=== PATIENT | female | born 1930 | race Caucasian/White ===

== ENCOUNTER → 2019-07-21 | Outpatient (CLI) | payer MEDICARE, BC ==
--- NOTE | 2019-07-21 13:12 | XR ---
EXAMINATION TYPE: XR knee complete RT DATE OF EXAM: 07/21/2019 COMPARISON: NONE HISTORY: 89-year-old female with right knee pain and swelling TECHNIQUE: 3 views FINDINGS: Mild to moderate narrowing of cartilage and joint space within the medial compartment with marginal s purring. Mild degenerative spurring in the patellofemoral compartment. Small knee joint effusion is p resent. Extensor mechanism is intact. No acute fracture, subluxation, or dislocation seen. IMPRESSION: [id number] medial compartmental osteoarthrosis. A weightbearing view could better assess the de gree of cartilage and joint space loss. Small knee joint effusion is nonspecific and may be reactive. No acute osseous abnormality seen.
== END | disposition home or self-care (01) ==
LOC: LABWHC1 11:18
PROVIDERS: ATTEND Family Medicine
DX: M17.11 Unilateral primary osteoarthritis, right knee (principal); R60.0 Localized edema; M25.561 Pain in right knee
CPT/HCPCS: 36415; 85379

== ENCOUNTER → 2019-07-25 | Outpatient (CLI) | payer MEDICARE, BC ==
--- NOTE | 2019-07-25 14:25 | XR ---
EXAMINATION TYPE: XR knee complete bilateral DATE OF EXAM: 07/25/2019 CLINICAL HISTORY: pain TECHNIQUE: Three views of the bilateral knees are obtained. COMPARISON: None. FINDINGS: There is no acute fracture/dislocation. Moderate narrowing noted to involve the bilateral medial tibiofemoral joint spaces and patellofemoral joint spaces. Intercondylar spur formation noted as well. The overlying soft tissue appears unremarkable. IMPRESSION: There is no acute fracture or dislocation.ICD 10 NO FRACTURE, INITIAL EVALUATION
== END | disposition home or self-care (01) ==
LOC: RADXRMAIN 13:06
PROVIDERS: ATTEND Family Medicine
DX: M25.561 Pain in right knee (principal); M25.562 Pain in left knee

== ENCOUNTER 2020-07-09 07:58 | Inpatient (IN) | payer MEDICARE, BC ==
--- NOTE | 2020-07-09 08:05 | ED ---
Chest Pain HPI - General Stated Complaint: chest pain Time Seen by Provider: 07/09/20 07:58 Source: patient, EMS, RN notes reviewed, old records reviewed Mode of arrival: EMS - History of Present Illness Initial Comments: This is an 89-year-old female history of hypertension and recently diagnosed atrial fibrillation who presents by EMS today with complaints of intermittent episodes of chest pain and palpitations that occur throughout this past morning since last night. She states the pain was pressure-like retrosternal and/10 currently it's almost completely gone and she did not require nitroglycerin and route. She did have a variable heart rate was atrial fibrillation. No complaints of fevers chills nausea vomiting sweats or other symptoms MD Complaint: chest pain, other - Related Data Home Medications Medication Instructions Recorded Confirmed Acetaminophen [Tylenol] 500 mg PO Q4-6H PRN 07/09/20 07/09/20 Alendronate Sodium [Fosamax] 70 mg PO SHIELDS 07/09/20 07/09/20 Atorvastatin [Lipitor] 10 mg PO HS 07/09/20 07/09/20 Losartan Potassium 100 mg PO DAILY 07/09/20 07/09/20 Nebivolol [Bystolic] 5 mg PO DAILY 07/09/20 07/09/20 Rivaroxaban [Xarelto] 20 mg PO DAILY 07/09/20 07/09/20 Allergies Allergy/AdvReac Type Severity Reaction Status Date / Time No Known Allergies Allergy Verified 07/09/20 08:23 Review of Systems ROS Statement: Those systems with pertinent positive or pertinent negative responses have been documented in the HPI. ROS Other: All systems not noted in ROS Statement are negative. EKG Findings - EKG Results: EKG: interpreted by JONAH (Atrial fibrillation rate 136 QRS 74 QT since QTC 318/478 nonspecific sept[address] changes some ST abnormality noted) General Exam - General Exam Comments Initial Comments: This is a well-developed well-nourished awake alert oriented 3 female General appearance: alert, anxious Head exam: Present: atraumatic, normocephalic, normal inspection Eye exam: Present: normal appearance, PERRL, EOMI. Absent: scleral icterus, conjunctival injection, periorbital swelling ENT exam: Present: normal exam, mucous membranes moist Neck exam: Present: normal inspection, full ROM, other (No stridor JVD or bruits). Absent: tenderness, meningismus, lymphadenopathy Respiratory exam: Present: normal lung sounds bilaterally. Absent: respiratory distress, wheezes, rales, rhonchi, stridor Cardiovascular Exam: Present: tachycardia, irregular rhythm. Absent: systolic murmur, diastolic murmur, rubs, gallop, clicks GI/Abdominal exam: Present: soft, normal bowel sounds. Absent: distended, tenderness, guarding, rebound, rigid Extremities exam: Present: normal inspection, full ROM, normal capillary refill. Absent: tenderness, pedal edema, joint swelling, calf tenderness Back exam: Present: normal inspection Neurological exam: Present: alert, oriented X3, CN II-XII intact Psychiatric exam: Present: normal affect, normal mood Skin exam: Present: warm, dry, intact, normal color. Absent: rash Course Vital Signs 07/09/20 07/09/20 08:02 09:02 Temperature 98.1 F Pulse Rate 137 H 100 Respiratory 18 18 Rate Blood Pressure 126/89 117/68 O2 Sat by Pulse 95 92 L Oximetry - Reevaluation(s) Reevaluation #1: 07/09/20 08:40 EKG obtained for the patient's primary care office dated 06/27/20 shows atrial fibrillation with similar configuration's. The rate was 135 at that time. Reevaluation #2: 07/09/20 10:01 The patient's heart rate has improved though it is still a bubble 100 no more chest pain reported this time. Chest Pain MDM - MDM Imaging reviewed increased pulmonary vascular markings. I did discuss the findings with the patient family as well as with Dr. Encarnacion Critical Care Time Critical Care Time: Yes Total Critical Care Time: 39 Critical Care Time: Critical care time includes initial presentation with history physical labs x- rays multiple reevaluation patient response to therapy discuss with the patient family and several occasions discuss with the admitting physician review of old charting admission orders documentation the above Disposition Clinical Impression: Rapid atrial fibrillation, Chest pain, Unstable angina pectoris Disposition: ADMITTED IP TO THIS HOSP Condition: Fair Referrals: Shane Post DO [Primary Care Provider] - 1-2 days
[2020-07-09] MEDS ORDERED: DILTIAZEM DRIP BOLUS FROM BAG 1 MG SOLN IV ONE (08:23)
[2020-07-09] MEDS ORDERED: NITROGLYCERIN OINT 1 INCH/GM PACKET TOPICAL STA (08:24)
[2020-07-09] MEDS ORDERED: DILTIAZEM 125 MG in SODIUM CHLORIDE 0.9% 100 ML IV SCH (08:30)
[2020-07-09 08:34] LABS: Basophils % (A) 0 %; Eosinophils # (A) 0.1 k/uL (0-0.7); Eosinophils % (A) 2 %; HCT 39.2 % (34.0-46.0); HGB 12.6 gm/dL (11.4-16.0); Lymphocytes # (A) 2.1 k/uL (1.0-4.8); Lymphocytes % (A) 33 %; MCH 30.1 pg (25.0-35.0); MCHC 32.2 g/dL (31.0-37.0); MCV 93.6 fL (80.0-100.0); Mean Platelet Volume 14.9; Monocytes # (A) 0.6 k/uL (0-1.0); Monocytes % (A) 9 %; Neutrophils # (A) 3.3 k/uL (1.3-7.7); Neutrophils % (A) 52 %; RBC 4.19 m/uL (3.80-5.40); RDW 13.5 % (11.5-15.5); WBC 6.3 k/uL (3.8-10.6)
--- NOTE | 2020-07-09 08:38 | XR ---
EXAMINATION TYPE: XR chest 2V DATE OF EXAM: 07/09/2020 COMPARISON: NONE HISTORY: Chest pain TECHNIQUE: Frontal and lateral views of the chest are obtained. FINDINGS: Heart size is within upper limits of normal. Atherosclerotic aorta. Multiple overlying mary ds. There are diffuse coarse interstitial markings throughout both lungs. There is hyperaeration of l ungs and flattening of the diaphragms suggestive of COPD. Coarse interstitial markings may be chronic or there may be superimposed atypical infection or edema. No prior comparison is available. Minimal atelectasis or scarring at the left lung base. No pleural effusion or pneumothorax. Osteopenia and de generative changes of the thoracic spine. IMPRESSION: 1. Diffuse bilateral coarse interstitial markings throughout the lungs. In a patient with COPD this m ost likely represents chronic scarring although superimposed infection or edema are not excluded. No prior comparison is available.
[2020-07-09 08:53] LABS: Albumin 4.4 g/dL (3.5-5.0); Calcium 9.3 mg/dL (8.4-10.2); Total Bilirubin 0.7 mg/dL (0.2-1.3); Total Protein 7.3 g/dL (6.3-8.2)
[2020-07-09 09:06] LABS: INR 1.1 (<1.2); Prothrombin Time 11.6 sec (9.0-12.0)
[2020-07-09 09:11] LABS: Platelet Count 107 k/uL (150-450)
[2020-07-09 09:12] LABS: Large Platelets Present
[2020-07-09 09:14] LABS: Magnesium 2.1 mg/dL (1.6-2.3); Potassium 4.6 mmol/L (3.5-5.1)
[2020-07-09] MEDS ORDERED: NITROGLYCERIN SL TABS 0.4 MG TAB SUBLINGUAL PRN (10:04)
[2020-07-09] MEDS: ACETAMINOPHEN TAB 500 MG TAB PO PRN ×2 (11:16→21:27)
[2020-07-09] MEDS ORDERED: NITROGLYCERIN OINT 1 INCH/GM PACKET TOPICAL SCH (12:00)
[2020-07-09] MEDS ORDERED: METOPROLOL TARTRATE 25 MG TAB PO SCH (12:30)
--- NOTE | 2020-07-09 13:41 | P.HPIM ---
History of Present Illness H&P Date: 07/09/20 HISTORY OF PRESENT ILLNESS This is an 89-year-old female patient of Dr. Post with past medical history of hypertension, hyperlipidemia, left-sided breast cancer status post surgical intervention in 2010. About one week ago, patient was diagnosed with atrial fibrillation and Dr. Post's office. She was started on bi-systolic and Xarelto. 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 She denies any history of heart attacks, no stress test in the past. Patient was brought into the hospital by EMS with complaints of chest pain and palpitations starting yesterday. The c hest pain was pressure-like retrosternal area type pain. No fever or chills. No nausea or vomiting. She was found to be afebrile, heart rate initially 137, blood pressure 126/89, pulse ox 95% on room air. EKG atrial fibrillation at 136 bpm. WBC 6.3, hemoglobin 12.6, platelet count 107. INR 1.1. Sodium 143, potassium 4.6, chloride 110, CO2 26, BUN 20 creatinine 1.16. Blood sugar 122. Troponins negative on 3 draws. Coronavirus PCR not detected. Liver function tests were normal. Chest x-ray reveals diffuse bilateral coarse interstitial markings throughout the lungs. This most likely represents chronic scarring although superimposed infection or edema not excluded. Patient was given Cardizem bolus of 10 mg followed by a drip at 5 mg per hour, resumed on bi- systolic and Xarelto, cardiology consult requested, echocardiogram ordered. Nitroglycerin paste discontinued due to hypotension. REVIEW OF SYSTEMS Constitutional: No fever, no chills, no night sweats. No weight change. Reports weakness, reports fatigue no lethargy. No daytime sleepiness. EENT: No headache. No blurred vision or double vision, no loss of vision. No loss of Hearing, no ringing in the ears, no dizziness. No nasal drainage or congestion. No epistaxis. No sore throat. Lungs: No shortness of breath, cough, no sputum production. No wheezing. Cardiovascular: Reports chest pain, no lower extremity edema. No palpitations. Reports paroxysmal nocturnal dyspnea. No orthopnea. No lightheadedness or dizziness. No syncopal episodes. Abdominal: No abdominal pain. No nausea, vomiting. No diarrhea. No constipation. No bloody or tarry stools.. No loss of appetite. Genitourinary: No dysuria, increased frequency, urgency. No urinary retention. Musculoskeletal: No myalgias. No muscle weakness, no gait dysfunction, no frequent falls. No back pain. No neck pain. Integumentary: No wounds, no lesions. No rash or pruritus. No unusual bruising. No change in hair or nails. Neurologic: No aphasia. No facial droop. No change in mentation. No head injury. No headache. No paralysis. No paresthesia. Psychiatric: No depression. No anxiety. No mood swings. Endocrine: No abnormal blood sugars. No weight change. No excessive sweating or thirst. No cold intolerance. SOCIAL HISTORY Patient is a lifelong nonsmoker, no alcohol abuse. She drinks occasional wine. She lives at home with her and daughter. FAMILY HISTORY Mother from CVA. Father from unknown cause. Patient has 3 sisters one is alive at age 96 after having a stroke at age 94. One sister has passed due to brain cancer and one has history of coronary artery disease status post stent. A shunt has total of 4 brothers and 3 past. One from diabetes, one from stroke, one from cancer unknown type. Patient has 2 daughters and one has history of carcinoid tumor removal. One son has history of diabetes. PHYSICAL EXAMINATION Gen: This is an 89-year-old female. Patient is resting on the ER stretcher. Patient's and daughters are at bedside. HEENT: Head is atraumatic, normocephalic. Pupils equal, round. Sclerae is anicteric. NECK: Supple. No JVD. No lymphadenopathy. No thyromegaly. LUNGS: Clear to auscultation. No wheezes or rhonchi. No intercostal retractions. HEART: Irregular rate and rhythm. No murmur. ABDOMEN: Soft. Bowel sounds are present. No masses. No tenderness. EXTREMITIES: No pedal edema. No calf tenderness. NEUROLOGICAL: Patient is awake, alert and oriented x3. Cranial nerves 2 through 12 are grossly intact. ASSESSMENT AND PLAN 1. A. fib with RVR, paroxysmal atrial fibrillation. Echocardiogram, cardiology consult, continue bi-systolic and Xarelto, Cardizem drip at 5 mg per hour. 2. Chest pain with negative troponins. Repeat troponin, echocardiogram. 3. Hypertension. Continue losartan 100 mg daily, bi-systolic. 4. Hyperlipidemia. Continue Lipitor 10 mg at bedtime. 5. History of left-sided breast cancer status post surgical intervention in 2010. 6. GI prophylaxis. Protonix. 7. DVT prophylaxis. Xarelto. Patient will be admitted to the hospital for a minimum of 2 night stay. DISCHARGE PLAN Home Impression and plan of care have been directed as dictated by the signing ph ysician. Triny Biggs nurse practitioner acting as scribe for signing physicia Past Medical History Additional Past Medical History / Comment(s): breast cancer on left side History of Any Multi-Drug Resistant Organisms: None Reported Past Surgical History: Breast Surgery Additional Past Surgical History / Comment(s): breast surgery 2010 Past Psychological History: No Psychological Hx Reported Smoking Status: Never smoker Past Alcohol Use History: Occasional Past Drug Use History: None Reported Medications and Allergies Home Medications Medication Instructions Recorded Confirmed Type Acetaminophen [Tylenol] 500 mg PO Q4-6H PRN 07/09/20 07/09/20 History Alendronate Sodium [Fosamax] 70 mg PO SHIELDS 07/09/20 07/09/20 History Atorvastatin [Lipitor] 10 mg PO HS 07/09/20 07/09/20 History Losartan Potassium 100 mg PO DAILY 07/09/20 07/09/20 History Nebivolol [Bystolic] 5 mg PO DAILY 07/09/20 07/09/20 History Rivaroxaban [Xarelto] 20 mg PO DAILY 07/09/20 07/09/20 History Allergies Allergy/AdvReac Type Severity Reaction Status Date / Time No Known Allergies Allergy Verified 07/09/20 08:23 Physical Exam Vitals: Vital Signs Temp Pulse Resp BP Pulse Ox 07/09/20 11:06 94 18 106/68 92 L 07/09/20 09:02 100 18 117/68 92 L 07/09/20 08:02 98.1 F 137 H 18 126/89 95 Intake and Output 07/08/20 07/09/20 07/09/20 22:59 06:59 14:59 Other: Weight 73.936 kg Results CBC & Chem 7: 07/09/20 08:16 07/09/20 08:16 Labs: Abnormal Lab Results - Last 24 Hours (Table) 07/09/20 07/09/20 Range/Units 08:16 08:16 Plt Count 107 L (150-450) k/uL Chloride 110 H (98-107) mmol/L BUN 20 H (7-17) mg/dL Creatinine 1.16 H (0.52-1.04) mg/dL Glucose 122 H (74-99) mg/dL
--- NOTE | 2020-07-09 13:49 | P.CRDCN ---
History of Present Illness History of present illness: HISTORY OF PRESENTING ILLNESS This is a pleasant 89-year-old female past medical history significant for hypertension, dyslipidemia and breast cancer status post mastectomy. She s tates one week ago she was diagnosed with A. fib by her PCP and started on Xarelto. 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 She presented to the hospital this morning with symptoms of chest heaviness and palpitations. On arrival she was found to be in A. fib with heart rate of 136. She was initiated on IV Cardizem. She is seen and examined resting comfortably in bed with to her daughters at the bedside. At this time her heart rate is much better controlled in the 80s, she continues to be in A. fib. She has no further symptoms of chest heaviness. She states over the previous 2 weeks she has noticed some exertional shortness of breath when she is climbing the stairs. No shortness of breath at rest. Chest x-ray reveals bilateral coarse interstitial markings. Laboratory data reviewed, platelets 107, sodium 143, potassium 4.6, creatinine 1.16, magnesium 0.7, troponin negative 2, proBNP 1510. Current daily cardiac medications include Xarelto 20 mg daily, by systolic 5 mg daily, losartan 100 mg daily and atorvastatin 10 mg daily. REVIEW OF SYSTEMS At the time of my exam: CONSTITUTIONAL: Denies fever or chills. CARDIOVASCULAR: Denies chest pain, shortness of breath, orthopnea, PND or palpitations. RESPIRATORY: Denies cough. GASTROINTESTINAL: Denies abdominal pain, diarrhea, constipation, nausea or vomiting. MUSCULOSKELETAL: Denies myalgias. NEUROLOGIC: Denies numbness, tingling, headacbe or weakness. ENDOCRINE: Denies fatigue, weight change, polydipsia or polyurina. GENITOURINARY: Denies burning, hematuria or urgency with micturation. HEMATOLOGIC: Denies history of anemia or bleeding. PHYSICAL EXAMINATION Blood pressure 106/68 heart rate 94 afebrile and maintaining oxygen saturation on room air. CONSTITUTIONAL: No apparent distress. HEENT: Head is normocephalic. Pupils are equal, round. Sclerae anicteric. Mucous membranes of the mouth are moist. No JVD. No carotid bruit. CHEST EXAMINATION: Lungs are clear to auscultation. No chest wall tenderness is noted on palpation or with deep breathing. HEART EXAMINATION: Irregular rate and rhythm. S1, S2 heard. No murmurs, gallops or rub. ABDOMEN: Soft, nontender. Positive bowel sounds. EXTREMITIES: 2+ peripheral pulses, no lower extremity edema and no calf tenderness. NEUROLOGIC EXAMINATION: Patient is awake, alert and oriented x3. ASSESSMENT Paroxysmal atrial fibrillation with rapid ventricular response Chest pain Hypertension Dyslipidemia PLAN Chest pain possibly related to A. fib with RVR. An acute coronary event has been ruled out. Obtain 2-D echocardiogram and Doppler study to assess cardiac structure and function. Change by bistolic to Toprol 25 mg daily. Discontinue Cardizem infusion. Decrease losartan to 50 mg daily. Further recommendations to follow based upon clinical course. Thank you kindly for this consultation. Nurse Practitioner note has been reviewed, I agree with a documented findings and plan of care. Patient was seen and examined. Past Medical History Additional Past Medical History / Comment(s): breast cancer on left side History of Any Multi-Drug Resistant Organisms: None Reported Past Surgical History: Breast Surgery Additional Past Surgical History / Comment(s): breast surgery 2010 Past Psychological History: No Psychological Hx Reported Smoking Status: Never smoker Past Alcohol Use History: Occasional Past Drug Use History: None Reported Medications and Allergies Home Medications Medication Instructions Recorded Confirmed Type Acetaminophen [Tylenol] 500 mg PO Q4-6H PRN 07/09/20 07/09/20 History Alendronate Sodium [Fosamax] 70 mg PO SHIELDS 07/09/20 07/09/20 History Atorvastatin [Lipitor] 10 mg PO HS 07/09/20 07/09/20 History Losartan Potassium 100 mg PO DAILY 07/09/20 07/09/20 History Nebivolol [Bystolic] 5 mg PO DAILY 07/09/20 07/09/20 History Rivaroxaban [Xarelto] 20 mg PO DAILY 07/09/20 07/09/20 History Allergies Allergy/AdvReac Type Severity Reaction Status Date / Time No Known Allergies Allergy Verified 07/09/20 08:23 Physical Exam Vitals: Vital Signs Temp Pulse Resp BP Pulse Ox 07/09/20 11:06 94 18 106/68 92 L 07/09/20 09:02 100 18 117/68 92 L 07/09/20 08:02 98.1 F 137 H 18 126/89 95 Intake and Output 07/08/20 07/09/20 07/09/20 22:59 06:59 14:59 Other: Weight 73.936 kg Results 07/09/20 08:16 07/09/20 08:16 Cardiac Enzymes 07/09/20 07/09/20 07/09/20 Range/Units 08:16 08:16 10:37 AST 28 (14-36) U/L Troponin I <0.012 <0.012 (0.000-0.034) ng/mL Coagulation 07/09/20 Range/Units 08:16 PT 11.6 (9.0-12.0) sec APTT 26.0 (22.0-30.0) sec CBC 07/09/20 Range/Units 08:16 WBC 6.3 (3.8-10.6) k/uL RBC 4.19 (3.80-5.40) m/uL Hgb 12.6 (11.4-16.0) gm/dL Hct 39.2 (34.0-46.0) % Plt Count 107 L (150-450) k/uL Comprehensive Metabolic Panel 07/09/20 Range/Units 08:16 Sodium 143 (137-145) mmol/L Potassium 4.6 (3.5-5.1) mmol/L Chloride 110 H (98-107) mmol/L Carbon Dioxide 26 (22-30) mmol/L BUN 20 H (7-17) mg/dL Creatinine 1.16 H (0.52-1.04) mg/dL Glucose 122 H (74-99) mg/dL Calcium 9.3 (8.4-10.2) mg/dL AST 28 (14-36) U/L ALT 16 (4-34) U/L Alkaline Phosphatase 40 (38-126) U/L Total Protein 7.3 (6.3-8.2) g/dL Albumin 4.4 (3.5-5.0) g/dL Current Medications Generic Name Dose Route Start Last Admin Trade Name Freq PRN Reason Stop Dose Admin Acetaminophen 500 mg 07/09/20 10:05 07/09/20 11:16 Acetaminophen Tab 500 Mg Tab PO 500 mg Q4H PRN Administration Pain Aspirin 325 mg 07/10/20 09:00 Aspirin 325 Mg Tab PO DAILY MADELAINE Atorvastatin Calcium 10 mg 07/09/20 21:00 Atorvastatin 10 Mg Tab PO HS [facility] Diltiazem HCl 125 mg/ Sodium 125 mls @ 5 mls/hr 06/01/21 08:30 07/09/20 08:40 Chloride IV 5 mg/hr .Q24H MADELAINE 5 mls/hr Administration 5 MG/HR Losartan Potassium 100 mg 07/10/20 09:00 Losartan 50 Mg Tab PO DAILY MADELAINE Nebivolol 5 mg 07/10/20 09:00 Nebivolol 5 Mg Tab PO DAILY MADELAINE Nitroglycerin 0.4 mg 07/09/20 10:04 Nitroglycerin Sl Tabs 0.4 Mg Tab SUBLINGUAL Q5M PRN Chest Pain Rivaroxaban 20 mg 07/10/20 09:00 Rivaroxaban 20 Mg Tab PO DAILY MADELAINE Intake and Output 07/08/20 07/09/20 07/09/20 22:59 06:59 14:59 Other: Weight 73.936 kg Patient Weight 07/10/20 06:59 Weight 73.936 kg 07/09/20 08:16 07/09/20 08:16
[2020-07-09] MEDS: METOPROLOL SUCCINATE (ER) 25 MG TAB.ER.24H PO SCH (14:39)
--- NOTE | 2020-07-09 17:22 | ECHOF ---
Referral Reason:LVF MEASUREMENTS -------- HEIGHT: 160.0 cm WEIGHT: 73.9 kg BP: IVSd: 1.2 cm (0.6 - 1.1) LVIDd: 3.9 cm (3.9 - 5.3) LVPWd: 1.2 cm (0.6 - 1.1) IVSs: 1.3 cm LVIDs: 2.6 cm LVPWs: 1.5 cm LA Diam: 4.1 cm (2.7 - 3.8) LAESV Index (A-L): 42.00 ml/m Ao Diam: 2.6 cm (2.0 - 3.7) MV EXCURSION: 19.089 mm (> 18.000) MV EF SLOPE: 73 mm/s (70 - 150) RAP: 5.00 mmHg RVSP: 41.43 mmHg FINDINGS -------- Atrial fibrillation. This was a technically adequate study. The left ventricular size is normal. There is mild concentric left ventricular hypertrophy. Overa ll left ventricular systolic function is low-normal with, an EF between 50 - 55 %. The right ventricle is normal in size. The left atrium is moderately dilated. The right atrial size is normal. There is mild aortic valve sclerosis. There is no evidence of aortic regurgitation. Mild mitral annular calcification present. Mild mitral regurgitation is present. The peak and me an MV gradients are 11.46mmHg 3.52mmHg as measured by doppler. Mild tricuspid regurgitation present. There is mild pulmonary hypertension. The right ventricular systolic pressure, as measured by Doppler, is 41.43mmHg. There is no pulmonic regurgitation present. The aortic root size is normal. There is no pericardial effusion. CONCLUSIONS -------- 1. The left ventricular size is normal. 2. There is mild concentric left ventricular hypertrophy. 3. Overall left ventricular systolic function is low-normal with, an EF between 50 - 55 %. 4. The right ventricle is normal in size. 5. The left atrium is moderately dilated. 6. The right atrial size is normal. 7. There is mild aortic valve sclerosis. 8. Mild mitral annular calcification present. 9. Mild mitral regurgitation is present. 10. The peak and mean MV gradients are 11.46mmHg 3.52mmHg as measured by doppler. 11. Mild tricuspid regurgitation present. 12. There is mild pulmonary hypertension. 13. The right ventricular systolic pressure, as measured by Doppler, is 41.43mmHg. 14. The aortic root size is normal. 15. There is no pericardial effusion. [employer] OPERATOR: Bethany Mccray RDCS
[2020-07-09] MEDS: ATORVASTATIN 10 MG TAB PO SCH (21:27)
[2020-07-10] MEDS ORDERED: DEXTROSE 5% IN WATER 100 ML with AMIODARONE 150 MG IV ONE (05:16)
[2020-07-10] MEDS ORDERED: AMIODARONE 360 MG in DEXTROSE 5% IN WATER 200 ML IV ONE ×2 (05:25)
[2020-07-10] MEDS: PANTOPRAZOLE 40 MG TABLET PO SCH (07:34)
[2020-07-10] MEDS: METOPROLOL SUCCINATE (ER) 25 MG TAB.ER.24H PO SCH (07:34)
[2020-07-10] MEDS ORDERED: METOPROLOL SUCCINATE (ER) 25 MG TAB.ER.24H PO ONE (08:40)
[2020-07-10] MEDS ORDERED: RIVAROXABAN 20 MG TAB PO SCH (09:00)
[2020-07-10] MEDS ORDERED: NEBIVOLOL 5 MG TAB PO SCH (09:00)
[2020-07-10] MEDS ORDERED: ASPIRIN 325 MG TAB PO SCH (09:00)
[2020-07-10] MEDS ORDERED: LOSARTAN 50 MG TAB PO SCH (09:00)
[2020-07-10] MEDS: LOSARTAN 50 MG TAB PO SCH (09:06)
[2020-07-10 10:45] LABS: African American GFR (CKD) 46.7 (60.0-200.0); BUN/Creat Ratio 18.33 Ratio (12.00-20.00); Chol/HDL Ratio 3.16; LDL Cholesterol,Calculated 91.8 mg/dL (0.0-131.0); Non-African American GFR(CKD) 40.3 (60.0-200.0); Potassium 4.6 mmol/L (3.5-5.5); VLDL Calculation 18.2 mg/dL (5.00-40.00)
--- NOTE | 2020-07-10 11:07 | P.PN ---
Subjective HISTORY OF PRESENTING ILLNESS This is a pleasant 89-year-old female past medical history significant for hypertension, dyslipidemia and breast cancer status post mastectomy. She states one week ago she was diagnosed with A. fib by her PCP and started on Xarelto. 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 She presented to the hospital this morning with symptoms of chest heaviness and palpitations. On arrival she was found to be in A. fib with heart rate of 136. She was initiated on IV Cardizem. She is seen and examined resting comfortably in bed with to her daughters at the bedside. At this time her heart rate is much better controlled in the 80s, she continues to be in A. fib. She has no further symptoms of chest heaviness. She states over the previous 2 weeks she has noticed some exertional shortness of breath when she is climbing the stairs. No shortness of breath at rest. Chest x-ray reveals bilateral coarse interstitial markings. Laboratory data reviewed, platelets 107, sodium 143, potassium 4.6, creatinine 1.16, magnesium 0.7, troponin negative 2, proBNP 1510. Current daily cardiac medications include Xarelto 20 mg daily, by systolic 5 mg daily, losartan 100 mg daily and atorvastatin 10 mg daily. 07/10/2020 Patient is seen and examined resting comfortably lying flat in bed in no acute distress. She is complaining of a headache. She continues to be in atrial fibrillation with rapid ventricular rate. Amiodarone was initiated through the night. Blood pressure 131/88 heart rate 138 afebrile maintaining oxygen saturation on nasal cannula. Echocardiogram obtained reveals preserved LV systolic function with ejection fraction 50-55%, mild mitral regurgitation, mild mitral stenosis with a mean gradient of 3 mmHg, mild tricuspid regurgitation and mild pulmonary hypertension with an RVSP of 40 mmHg. PHYSICAL EXAMINATION CONSTITUTIONAL: No apparent distress. HEENT: Head is normocephalic. Pupils are equal, round. Sclerae anicteric. Mucous membranes of the mouth are moist. No JVD. No carotid bruit. CHEST EXAMINATION: Lungs are clear to auscultation. No chest wall tenderness is noted on palpation or with deep breathing. HEART EXAMINATION: Irregular rate and rhythm. S1, S2 heard. No murmurs, gallops or rub. EXTREMITIES: 2+ peripheral pulses, no lower extremity edema and no calf tenderness. ASSESSMENT Paroxysmal atrial fibrillation with rapid ventricular response Chest pain Hypertension Dyslipidemia PLAN Increase Toprol to 50 mg daily. Nothing by mouth after midnight tonight for possible LUBA cardioversion tomorrow morning if she does not convert. Nurse Practitioner note has been reviewed, I agree with a documented findings and plan of care. Patient was seen and examined. Objective - Vital Signs Vital signs: Vital Signs Temp 98.7 F 07/10/20 07:43 Pulse 138 H 07/10/20 07:43 Resp 18 07/10/20 07:43 BP 131/88 07/10/20 07:43 Pulse Ox 95 07/10/20 07:43 Intake & Output 07/09/20 07/10/20 07/10/20 18:59 06:59 18:59 Intake Total 400 100 Balance 400 100 Weight 73.936 kg Intake: Oral 400 100 Other: Voiding Method Toilet Toilet # Voids 1 1 - Labs CBC & Chem 7: 07/09/20 08:16 07/10/20 05:26
[2020-07-10] MEDS ORDERED: AMIODARONE 450 MG in DEXTROSE 5% IN WATER 250 ML IV SCH ×2 (11:24)
[2020-07-10] MEDS: AMIODARONE 200 MG TAB PO SCH ×2 (11:37→20:00)
[2020-07-10] MEDS: DIGOXIN 62.5 MCG TAB PO SCH (11:38)
--- NOTE | 2020-07-10 15:00 | P.PN ---
Subjective Progress Note Date: 07/10/20 HISTORY OF PRESENT ILLNESS This is an 89-year-old female patient of Dr. Post with past medical history of hypertension, hyperlipidemia, left-sided breast cancer status post dyer rgical intervention in 2010. About one week ago, patient was diagnosed with atrial fibrillation and Dr. Post's office. She was started on bi-systolic and Xarelto. 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 She denies any history of heart attacks, no stress test in the past. Patient was brought into the hospital by EMS with complaints of chest pain and palpitations starting yesterday. The chest pain was pressure-like retrosternal area type pain. No fever or chills. No nausea or vomiting. She was found to be afebrile, heart rate initially 137, blood pressure 126/89, pulse ox 95% on room air. EKG atrial fibrillation at 136 bpm. WBC 6.3, hemoglobin 12.6, platelet count 107. INR 1.1. Sodium 143, potassium 4.6, chloride 110, CO2 26, BUN 20 creatinine 1.16. Blood sugar 122. Troponins negative on 3 draws. Coronavirus PCR not detected. Liver function tests were normal. Chest x-ray reveals diffuse bilateral coarse interstitial markings throughout the lungs. This most likely represents chronic scarring although superimposed infection or edema not excluded. Patient was given Cardi zem bolus of 10 mg followed by a drip at 5 mg per hour, resumed on bi-systolic and Xarelto, cardiology consult requested, echocardiogram ordered. Nitroglycerin paste discontinued due to hypotension. 07/10: Patient has been seen and followed by cardiology. Echocardiogram reveals EF of 50-55%, mild mitral regurgitation, mild mitral stenosis with mean gradient of 3 mmHg, mild tricuspid regurgitation and mild pulmonary hypertension. RVSP of 40 mmHg. Patient continues to be in atrial fibrillation with heart rate in the 140s. Cardiology started the patient on amiodarone drip this morning. Toprol increased to 50 mg daily and patient is scheduled for LUBA and cardioversion tomorrow. Patient is on oxygen at 4 L nasal cannula pulse ox is 95%. Chest x-ray has been ordered. REVIEW OF SYSTEMS Constitutional: No fever, no chills, no night sweats. No weight change. Rep orts weakness, reports fatigue no lethargy. No daytime sleepiness. EENT: No headache. No blurred vision or double vision, no loss of vision. No loss of Hearing, no ringing in the ears, no dizziness. No nasal drainage or congestion. No epistaxis. No sore throat. Lungs: Reports shortness of breath, no cough, no sputum production. No wheezing. Cardiovascular: Reports chest pain, no lower extremity edema. Reports palpitations. Reports paroxysmal nocturnal dyspnea. No orthopnea. No lighthe adedness or dizziness. No syncopal episodes. Abdominal: No abdominal pain. No nausea, vomiting. No diarrhea. No constipation. No bloody or tarry stools.. No loss of appetite. Genitourinary: No dysuria, increased frequency, urgency. No urinary retention. Musculoskeletal: No myalgias. No muscle weakness, no gait dysfunction, no frequent falls. No back pain. No neck pain. Integumentary: No wounds, no lesions. No rash or pruritus. No unusual bruising. No change in hair or nails. Neurologic: No aphasia. No facial droop. No change in mentation. No head injury. No headache. No paralysis. No paresthesia. Psychiatric: No depression. No anxiety. No mood swings. Endocrine: No abnormal blood sugars. No weight change. No excessive sweating or thirst. No cold intolerance. PHYSICAL EXAMINATION Gen: This is an 89-year-old female. Patient is resting on the ER stretcher. Patient's and daughters are at bedside. HEENT: Head is atraumatic, normocephalic. Pupils equal, round. Sclerae is anicteric. NECK: Supple. No JVD. No lymphadenopathy. No thyromegaly. LUNGS: Clear to auscultation. No wheezes or rhonchi. No intercostal retractions. HEART: Irregular rate and rhythm. No murmur. ABDOMEN: Soft. Bowel sounds are present. No masses. No tenderness. EXTREMITIES: No pedal edema. No calf tenderness. NEUROLOGICAL: Patient is awake, alert and oriented x3. Cranial nerves 2 through 12 are grossly intact. ASSESSMENT AND PLAN 1. A. fib with RVR, paroxysmal atrial fibrillation. Echocardiogram as above, cardiology consult appreciated. Bi-systolic was discontinued. Patient was started on Toprol-XL increased to 50 mg daily and amiodarone drip was discontinued and patient started on amiodarone 400 mg twice daily. Continue Xarelto. Plan for LUBA and cardioversion tomorrow. 2. Chest pain with negative troponins. Repeat troponin, echocardiogram. 3. Hypertension. Continue losartan 100 mg daily, Toprol-XL 4. Hyperlipidemia. Continue Lipitor 10 mg at bedtime. 5. History of left-sided breast cancer status post surgical intervention in 2010. 6. GI prophylaxis. Protonix. 7. DVT prophylaxis. Xarelto. DISCHARGE PLAN Home Impression and plan of care have been directed as dictated by the signing physician. Triny Biggs nurse practitioner acting as scribe for signing physicia Objective - Vital Signs Vital signs: Vital Signs Temp 98.7 F 07/10/20 07:43 Pulse 138 H 07/10/20 07:43 Resp 18 07/10/20 07:43 BP 131/88 07/10/20 07:43 Pulse Ox 95 07/10/20 07:43 Intake & Output 07/09/20 07/10/20 07/10/20 18:59 06:59 18:59 Intake Total 400 100 Balance 400 100 Weight 73.936 kg Intake: Oral 400 100 Other: Voiding Method Toilet Toilet # Voids 1 1 - Labs CBC & Chem 7: 07/09/20 08:16 07/10/20 05:26
--- NOTE | 2020-07-10 16:13 | XR ---
EXAMINATION TYPE: XR chest 1V portable DATE OF EXAM: 07/10/2020 COMPARISON: 07/09/2020 HISTORY: Chest pain TECHNIQUE: Single frontal view of the chest is obtained. FINDINGS: Heart size is mildly enlarged. Atherosclerotic Aorta. Multiple overlying leads. There are diffuse coarse interstitial markings throughout both lungs. There is hyperaeration of lungs and brenda ening of the diaphragms suggestive of COPD. Coarse interstitial markings have increased since exam suggestive of pulmonary edema or atypical infection. This may be superimposed on chronic inter stitial lung changes. Probable small left pleural effusion. IMPRESSION: 1. Heart size is mildly enlarged. Tiny left pleural effusion. Increasing pulmonary interstitial promi nence may represent edema. Consider congestive heart failure. Atypical infection is not excluded.
[2020-07-10] MEDS: ATORVASTATIN 10 MG TAB PO SCH (20:00)
[2020-07-10] MEDS: ACETAMINOPHEN TAB 500 MG TAB PO PRN (20:11)
[2020-07-11] MEDS ORDERED: SODIUM CHLORIDE 0.9% 1,000 ML IV SCH (08:15)
[2020-07-11] MEDS: AMIODARONE 200 MG TAB PO SCH (08:28)
[2020-07-11] MEDS ORDERED: METOPROLOL SUCCINATE (ER) 50 MG TAB.ER.24H PO SCH (09:00)
[2020-07-11] MEDS ORDERED: RIVAROXABAN 15 MG TAB PO SCH (09:00)
[2020-07-11] MEDS: PANTOPRAZOLE 40 MG TABLET PO SCH (10:11)
[2020-07-11] MEDS: FUROSEMIDE 10 MG/ML 2 ML VIAL IV SCH (10:11)
[2020-07-11] MEDS: DIGOXIN 62.5 MCG TAB PO SCH (10:11)
[2020-07-11] MEDS ORDERED: METOPROLOL SUCCINATE (ER) 50 MG TAB.ER.24H PO ONE (10:15)
--- NOTE | 2020-07-11 10:55 | P.PN ---
Subjective Progress Note Date: 07/11/20 HISTORY OF PRESENT ILLNESS This is an 89-year-old female patient of Dr. Post with past medical history of hypertension, hyperlipidemia, left-sided breast cancer status post dyer rgical intervention in 2010. About one week ago, patient was diagnosed with atrial fibrillation and Dr. Post's office. She was started on bi-systolic and Xarelto. 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 She denies any history of heart attacks, no stress test in the past. Patient was brought into the hospital by EMS with complaints of chest pain and palpitations starting yesterday. The chest pain was pressure-like retrosternal area type pain. No fever or chills. No nausea or vomiting. She was found to be afebrile, heart rate initially 137, blood pressure 126/89, pulse ox 95% on room air. EKG atrial fibrillation at 136 bpm. WBC 6.3, hemoglobin 12.6, platelet count 107. INR 1.1. Sodium 143, potassium 4.6, chloride 110, CO2 26, BUN 20 creatinine 1.16. Blood sugar 122. Troponins negative on 3 draws. Coronavirus PCR not detected. Liver function tests were normal. Chest x-ray reveals diffuse bilateral coarse interstitial markings throughout the lungs. This most likely represents chronic scarring although superimposed infection or edema not excluded. Patient was given Cardi zem bolus of 10 mg followed by a drip at 5 mg per hour, resumed on bi-systolic and Xarelto, cardiology consult requested, echocardiogram ordered. Nitroglycerin paste discontinued due to hypotension. 07/10: Patient has been seen and followed by cardiology. Echocardiogram reveals EF of 50-55%, mild mitral regurgitation, mild mitral stenosis with mean gradient of 3 mmHg, mild tricuspid regurgitation and mild pulmonary hypertension. RVSP of 40 mmHg. Patient continues to be in atrial fibrillation with heart rate in the 140s. Cardiology started the patient on amiodarone drip this morning. Toprol increased to 50 mg daily and patient is scheduled for LUBA and cardioversion tomorrow. Patient is on oxygen at 4 L nasal cannula pulse ox is 95%. Chest x-ray has been ordered. 07/11: Patient remains in A fib with RVR at 128 bpm. She is scheduled for LUBA and cardioversion today. She has been afebrile, PO 95% on 2L, BP 132/80. Losartan was decreased to 50 mg daily and Digoxin was added yesterday at 62.5 mcg yesterday. Chest x-ray reveals heart size is mildly enlarged. Tiny left pleural effusion. Increased pulmonary interstitial prominence may represent edema. Consider congestive heart failure. Atypical infection is not excluded. Lasix 20 mg IV added. Patient complains of difficulty with breathing and cough, nonproductive. She slept well. No chest pain. REVIEW OF SYSTEMS Constitutional: No fever, no chills, no night sweats. No weight change. Reports weakness, reports fatigue no lethargy. No daytime sleepiness. EENT: No headache. No blurred vision or double vision, no loss of vision. No loss of Hearing, no ringing in the ears, no dizziness. No nasal drainage or congestion. No epistaxis. No sore throat. Lungs: Reports shortness of breath, no cough, no sputum production. No wheezing. Cardiovascular: Reports chest pain, no lower extremity edema. Reports palpitations. Reports paroxysmal nocturnal dyspnea. No orthopnea. No lightheadedness or dizziness. No syncopal episodes. Abdominal: No abdominal pain. No nausea, vomiting. No diarrhea. No constipation. No bloody or tarry stools.. No loss of appetite. Genitourinary: No dysuria, increased frequency, urgency. No urinary retention. Musculoskeletal: No myalgias. No muscle weakness, no gait dysfunction, no frequent falls. No back pain. No neck pain. Integumentary: No wounds, no lesions. No rash or pruritus. No unusual bruising. No change in hair or nails. Neurologic: No aphasia. No facial droop. No change in mentation. No head injury. No headache. No paralysis. No paresthesia. Psychiatric: No depression. No anxiety. No mood swings. Endocrine: No abnormal blood sugars. No weight change. No excessive sweating or thirst. No cold intolerance. PHYSICAL EXAMINATION Gen: This is an 89-year-old female. Patient is resting in bed and appears to be comfortable. HEENT: Head is atraumatic, normocephalic. Pupils equal, round. Sclerae is anicteric. NECK: Supple. No JVD. No lymphadenopathy. No thyromegaly. LUNGS: Clear to auscultation. No wheezes or rhonchi. No intercostal retractions. HEART: Irregular rate and rhythm. No murmur. ABDOMEN: Soft. Bowel sounds are present. No masses. No tenderness. EXTREMITIES: No pedal edema. No calf tenderness. NEUROLOGICAL: Patient is awake, alert and oriented x3. Cranial nerves 2 through 12 are grossly intact. ASSESSMENT AND PLAN 1. A. fib with RVR, paroxysmal atrial fibrillation. Echocardiogram as above, cardiology consult appreciated. Continue Toprol-XL 50 mg daily and amiodarone 400 mg twice daily, digoxin 62.4 g daily. Continue Xarelto. Plan for LUBA and cardioversion today. 2. Chest pain with negative troponins. Acute Coronoary syndrome ruled out. 3. Hypertension. Continue losartan decreased to 50 mg daily, Toprol-XL 4. Hyperlipidemia. Continue Lipitor 10 mg at bedtime. 5. History of left-sided breast cancer status post surgical intervention in 2010. 6. GI prophylaxis. Protonix. 7. DVT prophylaxis. Xarelto. DISCHARGE PLAN Home Impression and plan of care have been directed as dictated by the signing physician. Triny Biggs nurse practitioner acting as scribe for signing physicia Objective - Vital Signs Vital signs: Vital Signs Temp 99.4 F 07/11/20 08:00 Pulse 128 H 07/11/20 08:00 Resp 16 07/11/20 08:00 BP 132/80 07/11/20 08:00 Pulse Ox 95 07/11/20 08:00 Intake & Output 07/10/20 07/11/20 07/11/20 18:59 06:59 18:59 Intake Total 300 Balance 300 Intake: Oral 300 Other: Voiding Method Toilet Toilet Toilet # Voids 1 2 - Labs CBC & Chem 7: 07/09/20 08:16 07/10/20 05:26 Labs: Abnormal Lab Results - Last 24 Hours (Table) 07/10/20 Range/Units 05:26 Est GFR (CKD-EPI)AfAm 46.7 L (60.0-200.0) Est GFR (CKD-EPI)NonAf 40.3 L (60.0-200.0) Glucose 141 H (70-110) mg/dL
--- NOTE | 2020-07-11 10:55 | P.PN ---
Subjective HISTORY OF PRESENTING ILLNESS This is a pleasant 89-year-old female past medical history significant for hypertension, dyslipidemia and breast cancer status post mastectomy. She states one week ago she was diagnosed with A. fib by her PCP and started on Xarelto. 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 She presented to the hospital this morning with symptoms of chest heaviness and palpitations. On arrival she was found to be in A. fib with heart rate of 136. She was initiated on IV Cardizem. She is seen and examined resting comfortably in bed with to her daughters at the bedside. At this time her heart rate is much better controlled in the 80s, she continues to be in A. fib. She has no further symptoms of chest heaviness. She states over the previous 2 weeks she has noticed some exertional shortness of breath when she is climbing the stairs. No shortness of breath at rest. Chest x-ray reveals bilateral coarse interstitial markings. Laboratory data reviewed, platelets 107, sodium 143, potassium 4.6, creatinine 1.16, magnesium 0.7, troponin negative 2, proBNP 1510. Current daily cardiac medications include Xarelto 20 mg daily, by systolic 5 mg daily, losartan 100 mg daily and atorvastatin 10 mg daily. 07/11/2020 Patient is seen and examined resting comfortably lying flat in bed in no acute distress. She denies symptoms of chest pain, shortness of breath, dizziness or palpitations. However telemetry tracings reveals she continues to be in persistent atrial fibrillation with poorly controlled ventricular rates despite medical therapy. Blood pressure 132/80 heart rate 128 afebrile maintaining oxygen saturation on nasal cannula. PHYSICAL EXAMINATION CONSTITUTIONAL: No apparent distress. HEENT: Head is normocephalic. Pupils are equal, round. Sclerae anicteric. Mucous membranes of the mouth are moist. No JVD. No carotid bruit. CHEST EXAMINATION: Lungs are clear to auscultation. No chest wall tenderness is noted on palpation or with deep breathing. HEART EXAMINATION: Irregular rate and rhythm. S1, S2 heard. No murmurs, gallops or rub. EXTREMITIES: 2+ peripheral pulses, no lower extremity edema and no calf tenderness. ASSESSMENT Paroxysmal atrial fibrillation with rapid ventricular response Chest pain Hypertension Dyslipidemia PLAN Plan for LUBA/cardioversion tomorrow if she does not convert. Continue amiodarone and digoxin. Increase toprol to 100 mg daily, give additional dose of 50 mg now. Further recommendations to follow based on clinical course. Nurse Practitioner note has been reviewed, I agree with a documented findings and plan of care. Patient was seen and examined. Objective - Vital Signs Vital signs: Vital Signs Temp 99.4 F 07/11/20 08:00 Pulse 128 H 07/11/20 08:00 Resp 16 07/11/20 08:00 BP 132/80 07/11/20 08:00 Pulse Ox 95 07/11/20 08:00 Intake & Output 07/10/20 07/11/20 07/11/20 18:59 06:59 18:59 Intake Total 300 Balance 300 Intake: Oral 300 Other: Voiding Method Toilet Toilet Toilet # Voids 1 2 - Labs CBC & Chem 7: 07/09/20 08:16 07/10/20 05:26 Labs: Abnormal Lab Results - Last 24 Hours (Table) 07/10/20 Range/Units 05:26 Est GFR (CKD-EPI)AfAm 46.7 L (60.0-200.0) Est GFR (CKD-EPI)NonAf 40.3 L (60.0-200.0) Glucose 141 H (70-110) mg/dL
[2020-07-11] MEDS: ACETAMINOPHEN TAB 500 MG TAB PO PRN (15:48)
[2020-07-11] MEDS: LOSARTAN 50 MG TAB PO SCH (15:49)
[2020-07-11] MEDS ORDERED: RIVAROXABAN 20 MG TAB PO SCH (17:30)
[2020-07-12] MEDS: AMIODARONE 200 MG TAB PO SCH ×2 (00:12→08:37)
[2020-07-12] MEDS: ATORVASTATIN 10 MG TAB PO SCH (00:13)
[2020-07-12 07:52] VITALS: TEMP 98.2
[2020-07-12] MEDS ORDERED: RIVAROXABAN 20 MG TAB PO SCH (09:00)
[2020-07-12] MEDS ORDERED: METOPROLOL SUCCINATE (ER) 100 MG TAB.ER.24H PO SCH (09:00)
[2020-07-12] MEDS ORDERED: IV FLUID CONTINUATION 1,000 ML IV ONE (10:11)
[2020-07-12] MEDS ORDERED: PROPOFOL 10 MG/ML 20 ML VIAL IV ONE (10:39)
--- NOTE | 2020-07-12 11:37 | P.PN ---
Subjective Progress Note Date: 07/12/20 HISTORY OF PRESENT ILLNESS This is an 89-year-old female patient of Dr. Post with past medical history of hypertension, hyperlipidemia, left-sided breast cancer status post dyer rgical intervention in 2010. About one week ago, patient was diagnosed with atrial fibrillation and Dr. Post's office. She was started on bi-systolic and Xarelto. 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 She denies any history of heart attacks, no stress test in the past. Patient was brought into the hospital by EMS with complaints of chest pain and palpitations starting yesterday. The chest pain was pressure-like retrosternal area type pain. No fever or chills. No nausea or vomiting. She was found to be afebrile, heart rate initially 137, blood pressure 126/89, pulse ox 95% on room air. EKG atrial fibrillation at 136 bpm. WBC 6.3, hemoglobin 12.6, platelet count 107. INR 1.1. Sodium 143, potassium 4.6, chloride 110, CO2 26, BUN 20 creatinine 1.16. Blood sugar 122. Troponins negative on 3 draws. Coronavirus PCR not detected. Liver function tests were normal. Chest x-ray reveals diffuse bilateral coarse interstitial markings throughout the lungs. This most likely represents chronic scarring although superimposed infection or edema not excluded. Patient was given Cardi zem bolus of 10 mg followed by a drip at 5 mg per hour, resumed on bi-systolic and Xarelto, cardiology consult requested, echocardiogram ordered. Nitroglycerin paste discontinued due to hypotension. 07/10: Patient has been seen and followed by cardiology. Echocardiogram reveals EF of 50-55%, mild mitral regurgitation, mild mitral stenosis with mean gradient of 3 mmHg, mild tricuspid regurgitation and mild pulmonary hypertension. RVSP of 40 mmHg. Patient continues to be in atrial fibrillation with heart rate in the 140s. Cardiology started the patient on amiodarone drip this morning. Toprol increased to 50 mg daily and patient is scheduled for LUBA and cardioversion tomorrow. Patient is on oxygen at 4 L nasal cannula pulse ox is 95%. Chest x-ray has been ordered. 07/11: Patient remains in A fib with RVR at 128 bpm. She is scheduled for LUBA and cardioversion today. She has been afebrile, PO 95% on 2L, BP 132/80. Losartan was decreased to 50 mg daily and Digoxin was added yesterday at 62.5 mcg yesterday. Chest x-ray reveals heart size is mildly enlarged. Tiny left pleural effusion. Increased pulmonary interstitial prominence may represent edema. Consider congestive heart failure. Atypical infection is not excluded. Lasix 20 mg IV added. Patient complains of difficulty with breathing and cough, nonproductive. She slept well. No chest pain. 07/12: Patient is currently in atrial fibrillation with heart rate of 124. Blood pressure 118/69, pulse ox 93% on room air. Patient has been afebrile. LUBA and cardioversion was delayed yesterday due to staffing issues in the OR related to anesthesia and has been rescheduled for today. No new complaints. REVIEW OF SYSTEMS Constitutional: No fever, no chills, no night sweats. No weight change. Reports weakness, reports fatigue no lethargy. No daytime sleepiness. EENT: No headache. No blurred vision or double vision, no loss of vision. No loss of Hearing, no ringing in the ears, no dizziness. No nasal drainage or congestion. No epistaxis. No sore throat. Lungs: Reports shortness of breath, no cough, no sputum production. No wheezing. Cardiovascular: Reports chest pain, no lower extremity edema. Reports palpitations. Reports paroxysmal nocturnal dyspnea. No orthopnea. No lightheadedness or dizziness. No syncopal episodes. Abdominal: No abdominal pain. No nausea, vomiting. No diarrhea. No constipation. No bloody or tarry stools.. No loss of appetite. Genitourinary: No dysuria, increased frequency, urgency. No urinary retention. Musculoskeletal: No myalgias. No muscle weakness, no gait dysfunction, no frequent falls. No back pain. No neck pain. Integumentary: No wounds, no lesions. No rash or pruritus. No unusual bruising. No change in hair or nails. Neurologic: No aphasia. No facial droop. No change in mentation. No head injury. No headache. No paralysis. No paresthesia. Psychiatric: No depression. No anxiety. No mood swings. Endocrine: No abnormal blood sugars. No weight change. No excessive sweating or thirst. No cold intolerance. PHYSICAL EXAMINATION Gen: This is an 89-year-old female. Patient is resting in bed and appears to be comfortable. HEENT: Head is atraumatic, normocephalic. Pupils equal, round. Sclerae is anicteric. NECK: Supple. No JVD. No lymphadenopathy. No thyromegaly. LUNGS: Clear to auscultation. No wheezes or rhonchi. No intercostal retractions. HEART: Irregular rate and rhythm. No murmur. ABDOMEN: Soft. Bowel sounds are present. No masses. No tenderness. EXTREMITIES: No pedal edema. No calf tenderness. NEUROLOGICAL: Patient is awake, alert and oriented x3. Cranial nerves 2 through 12 are grossly intact. ASSESSMENT AND PLAN 1. A. fib with RVR, paroxysmal atrial fibrillation. Echocardiogram as above, cardiology consult appreciated. Continue Toprol-XL 50 mg daily and amiodarone 400 mg twice daily, digoxin 62.4 g daily. Continue Xarelto. Plan for LUBA and cardioversion today. 2. Chest pain with negative troponins. Acute Coronoary syndrome ruled out. 3. Hypertension. Continue losartan 50 mg daily, Toprol-XL 4. Hyperlipidemia. Continue Lipitor 10 mg at bedtime. 5. History of left-sided breast cancer status post surgical intervention in 2010. 6. GI prophylaxis. Protonix. 7. DVT prophylaxis. Xarelto. DISCHARGE PLAN Home Impression and plan of care have been directed as dictated by the signing physician. Triny Biggs nurse practitioner acting as scribe for signing physicia Objective - Vital Signs Vital signs: Vital Signs Temp 98.7 F 07/12/20 02:38 Pulse 96 07/12/20 02:38 Resp 18 07/12/20 02:38 BP 118/69 07/12/20 02:38 Pulse Ox 93 L 07/12/20 02:38 Intake & Output 07/11/20 07/12/20 07/12/20 18:59 06:59 18:59 Intake Total 236 Balance 236 Intake: Oral 236 Other: Voiding Method Toilet Toilet # Voids 4 1 - Labs CBC & Chem 7: 07/09/20 08:16 07/10/20 05:26
--- NOTE | 2020-07-12 11:42 | P.DS ---
Providers Date of admission: 07/10/20 10:32 Expected date of discharge: 07/12/20 Attending physician: Chapincito Encarnacion MD Consults: 07/09/20 10:04 Consult Physician Urgent Consulting Provider: Jakob Caro Consult Reason/Comments: Chest pain, rapid A. fib Do you want consulting provider notified?: Yes [facility]: HISTORY OF PRESENT ILLNESS This is an 89-year-old female patient of Dr. Post with past medical history of hypertension, hyperlipidemia, left-sided breast cancer status post surgical intervention in 2010. About one week ago, patient was diagnosed with atrial fibrillation and Dr. Post's office. She was started on bi-systolic and Xarelto. 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 She denies any history of heart attacks, no stress test in the past. Patient was brought into the hospital by EMS with complaints of chest pain and palpitations starting yesterday. The chest pain was pressure-like retrosternal area type pain. No fever or chills. No nausea or vomiting. She was found to be afebrile, heart rate initially 137, blood pressure 126/89, pulse ox 95% on room air. EKG atrial fibrillation at 136 bpm. WBC 6.3, hemoglobin 12.6, platelet count 107. INR 1.1. Sodium 143, potassium 4.6, chloride 110, CO2 26, BUN 20 creatinine 1.16. Blood sugar 122. Troponins negative on 3 draws. Coronavirus PCR not detected. Liver function tests were normal. Chest x-ray reveals diffuse bilateral coarse interstitial markings throughout the lungs. This most likely represents chronic scarring although superimposed infection or edema not excluded. Patient was given Cardizem bolus of 10 mg followed by a drip at 5 mg per hour, resumed on bi- systolic and Xarelto, cardiology consult requested, echocardiogram ordered. Nitroglycerin paste discontinued due to hypotension. 07/10: Patient has been seen and followed by cardiology. Echocardiogram reveals EF of 50-55%, mild mitral regurgitation, mild mitral stenosis with mean gradient of 3 mmHg, mild tricuspid regurgitation and mild pulmonary hypertension. RVSP of 40 mmHg. Patient continues to be in atrial fibrillation with heart rate in the 140s. Cardiology started the patient on amiodarone drip this morning. Toprol increased to 50 mg daily and patient is scheduled for LUBA and cardioversion tomorrow. Patient is on oxygen at 4 L nasal cannula pulse ox is 95%. Chest x-ray has been ordered. 07/11: Patient remains in A fib with RVR at 128 bpm. She is scheduled for LUBA and cardioversion today. She has been afebrile, PO 95% on 2L, BP 132/80. Losartan was decreased to 50 mg daily and Digoxin was added yesterday at 62.5 mcg yesterday. Chest x-ray reveals heart size is mildly enlarged. Tiny left pleural effusion. Increased pulmonary interstitial prominence may represent edema. Consider congestive heart failure. Atypical infection is not excluded. Lasix 20 mg IV added. Patient complains of difficulty with breathing and cough, nonproductive. She slept well. No chest pain. 07/12: Patient is currently in atrial fibrillation with heart rate of 124. Blood pressure 118/69, pulse ox 93% on room air. Patient has been afebrile. LUBA and cardioversion was delayed yesterday due to staffing issues in the OR related to anesthesia and has been rescheduled for today. No new complaints. Torrie Neff underwent successful cardioversion. She has been cleared by cardiology for discharge. Patient will be discharged home today in stable condition. ASSESSMENT AND PLAN 1. A. fib with RVR, paroxysmal atrial fibrillation, status post cardioversion. 2. Chest pain with negative troponins. Acute Coronoary syndrome ruled out. 3. Hypertension. 4. Hyperlipidemia. 5. History of left-sided breast cancer status post surgical intervention in 2010. DISCHARGE PLAN Home Impression and plan of care have been directed as dictated by the signing physician. Triny Biggs nurse practitioner acting as scribe for signing physicia Patient Condition at Discharge: Fair Plan - Discharge Summary Discharge Rx Participant: No New Discharge Prescriptions: New Amiodarone [Cordarone] 200 mg PO BID #180 tab Metoprolol Succinate (ER) [Toprol XL] 50 mg PO DAILY #90 tab.er.24h Losartan [Cozaar] 50 mg PO DAILY #30 tab Continue Rivaroxaban [Xarelto] 20 mg PO DAILY Atorvastatin [Lipitor] 10 mg PO HS Acetaminophen [Tylenol] 500 mg PO Q4-6H PRN PRN Reason: Pain Alendronate Sodium [Fosamax] 70 mg PO SHIELDS Discontinued Losartan Potassium 100 mg PO DAILY Nebivolol [Bystolic] 5 mg PO DAILY Discharge Medication List Acetaminophen [Tylenol] 500 mg PO Q4-6H PRN 07/09/20 [History] Alendronate Sodium [Fosamax] 70 mg PO SHIELDS 07/09/20 [History] Atorvastatin [Lipitor] 10 mg PO HS 07/09/20 [History] Rivaroxaban [Xarelto] 20 mg PO DAILY 07/09/20 [History] Amiodarone [Cordarone] 200 mg PO BID #180 tab 07/12/20 [Rx] Losartan [Cozaar] 50 mg PO DAILY #30 tab 07/12/20 [Rx] Metoprolol Succinate (ER) [Toprol XL] 50 mg PO DAILY #90 tab.er.24h 07/12/20 [Rx] Follow up Appointment(s)/Referral(s): Jakob Caro MD [STAFF PHYSICIAN] - 1 Week Shane Post DO [Primary Care Provider] - 1 Week Discharge Disposition: HOME SELF-CARE
[2020-07-12 11:47] VITALS: RESP 20
[2020-07-12 12:32] VITALS: BP 119/70; PULSE 61
[2020-07-12] MEDS: FUROSEMIDE 10 MG/ML 2 ML VIAL IV SCH (12:44)
[2020-07-12] MEDS: LOSARTAN 50 MG TAB PO SCH (12:45)
[2020-07-12] MEDS: PANTOPRAZOLE 40 MG TABLET PO SCH (12:47)
--- NOTE | 2020-07-12 20:38 | CE ---
CARDIAC ELECTROPHYSIOLOGY REPORT CARDIOVERSION: INDICATION: Persistent atrial fibrillation. DESCRIPTION OF PROCEDURE: After obtaining informed consent, ensuring the patient does not have intracardiac thrombus and adequate anticoagulation, we proceeded with electrical cardioversion. Patient received 200 joules of synchronized DC current following which she converted to sinus rhythm and stayed in sinus rhythm. We will treat the patient with amiodarone, metoprolol, but decrease the dose of metoprolol given the possibility of bradycardia and continue the Xarelto. MMBLESSING / IJN: [id number] /
--- NOTE | 2020-07-12 20:38 | ECHOT ---
TRANSESOPHAGEAL ECHOCARDIOGRAM INDICATION: Persistent atrial fibrillation with rapid ventricular rate. First procedure: LUBA. INDICATION: Atrial fibrillation, rule out cardiac thrombus. DESCRIPTION OF PROCEDURE: After obtaining informed consent, transesophageal echocardiogram is performed in left lateral position using an Omni plane probe. Local and IV sedation were obtained using Xylocaine spray, intravenous Versed and fentanyl. Patient was sedated by the field naturalist. FINDINGS: 1. Left atrial appendage, left atrium, right atrium, right ventricle are free of thrombus. 2. Left atrium appears enlarged. 3. Right atrium, right ventricle within normal limits. 4. Left ventricle has normal size and systolic function. 5. Mitral valve shows mild to moderate central mitral regurgitation. 6. There is mild tricuspid regurgitation. 7. Aortic valve is free of stenosis or regurgitation. 8. Aorta shows [id number] atherosclerotic changes. 9. Interatrial septum: There is no evidence of [id number] shunt by color-flow Doppler or [id number] shunt by agitated saline contrast study. CONCLUSIONS: 1. No intracardiac thrombus. 2. Mild to moderate mitral regurgitation. PLAN: Patient will undergo cardioversion. MMODL / IJN: [id number] /
[2020-07-13] MEDS ORDERED: METOPROLOL SUCCINATE (ER) 50 MG TAB.ER.24H PO SCH (09:00)
[2020-07-14] MEDS ORDERED: NON FORMULARY DRUG (Alendronate Sodium [Fosamax] 70 MG Tablet) PO SCH (10:05)
== END 2020-07-12 14:40 | disposition home or self-care (01) | DRG 310 ==
LOC: EC 07:58 → 1SOBS 10:11 → 6NMEDSUR 11:11 → OBSVTOIN 07-10 10:32
PROVIDERS: ADMIT Internal Medicine; ATTEND Internal Medicine
PROC: 5A2204Z Restoration of Cardiac Rhythm, Single (ICD-10-PCS; principal; 2020-07-12 10:30)
PROC: B246ZZ4 Ultrasonography of Right and Left Heart, Transesophageal (ICD-10-PCS; principal; 2020-07-12 10:30)
DX: I48.19 Other persistent atrial fibrillation (principal); I27.20 Pulmonary hypertension, unspecified; I10 Essential (primary) hypertension; E78.5 Hyperlipidemia, unspecified; Z85.3 Personal history of malignant neoplasm of breast; Z83.3 Family history of diabetes mellitus; Z90.10 Acquired absence of unspecified breast and nipple; Z82.3 Family history of stroke; Z80.8 Family history of malignant neoplasm of other organs or systems; Z79.899 Other long term (current) drug therapy; Z79.83 Long term (current) use of bisphosphonates; Z79.01 Long term (current) use of anticoagulants; I08.1 Rheumatic disorders of both mitral and tricuspid valves; Z20.822 Contact with and (suspected) exposure to COVID-19
CPT/HCPCS: 36415; 71045; 71046; 80048; 80053; 80061; 82550; 83735; 83880; 84484; 85025; 85610; 85730; 87635; 92960; 93005; 93306; 93312; 93320; 93325; 96374; 99291

== ENCOUNTER → 2020-07-17 | Outpatient (CLI) | payer MEDICARE, BC ==
--- NOTE | 2020-07-17 14:13 | XR ---
EXAMINATION TYPE: XR chest 2V DATE OF EXAM: 07/17/2020 COMPARISON: Chest x-ray July 10, 2020 HISTORY: Atrial fibrillation. TECHNIQUE: Frontal and lateral views of the chest are obtained. FINDINGS: There is background mild cardiomegaly with atherosclerotic thoracic aorta. 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 Persistent small to tiny right greater than left pleural effusions. The osseous structures r emain demineralized. Surgical clips right axilla redemonstrated. IMPRESSION: Chronic emphysematous and pulmonary fibrotic changes along with mild cardiomegaly and sm all to tiny right greater left pleural effusions are all redemonstrated. Improved central vascular c ongestion and interstitial edema noted.
== END | disposition home or self-care (01) ==
LOC: RADXRMAIN 13:52
PROVIDERS: ATTEND Family Medicine
DX: J84.10 Pulmonary fibrosis, unspecified (principal); J90 Pleural effusion, not elsewhere classified; J84.9 Interstitial pulmonary disease, unspecified; I51.7 Cardiomegaly; J43.9 Emphysema, unspecified
CPT/HCPCS: 71046

== ENCOUNTER → 2020-10-15 | Outpatient (CLI) | payer MEDICARE, BC | END | disposition home or self-care (01) | LOC: LABWHC1 09:17 | PROVIDERS: ATTEND Internal Medicine Cardiovascular Disease | DX: I48.0 Paroxysmal atrial fibrillation (principal) | CPT/HCPCS: 36415; 84443; 84450; 84460 ==

== ENCOUNTER 2022-02-06 08:30 | Emergency (ER) | payer MEDICARE, BC ==
--- NOTE | 2022-02-06 09:07 | ED ---
Female Urogenital HPI - General Chief complaint: Vaginal Bleeding Stated complaint: Vaginal bleeding Time Seen by Provider: 02/06/22 08:52 Source: patient, RN notes reviewed, old records reviewed Limitations: no limitations - History of Present Illness Initial comments: This is a nontoxic well-appearing 89-year-old female presents to the emergency room with complaints of vaginal bleeding this morning. Patient states that she went through 3 washcloths however bleeding has since subsided she denies any pain. Does have a history of breast cancer in remission since 2010. Does take xeralto for atrial fibrillation. MD Complaint: vaginal bleeding -: hour(s) Radiation: non-radiating Severity scale (1-10): 0 Patient : No - Related Data Home Medications Medication Instructions Recorded Confirmed Alendronate Sodium [Fosamax] 70 mg PO SHIELDS 07/09/20 02/06/22 Atorvastatin [Lipitor] 10 mg PO HS 07/09/20 02/06/22 Rivaroxaban [Xarelto] 20 mg PO HS 07/09/20 02/06/22 Cholecalciferol (Vitamin D3) 75 mcg PO DAILY 02/06/22 02/06/22 [Vitamin D3 (3000 Iu)] Losartan Potassium [Cozaar] 100 mg PO DAILY 02/06/22 02/06/22 Multivitamins, Thera [Multivitamin 1 tab PO DAILY 02/06/22 02/06/22 (formulary)] Vitamin C/Biotin [Hair, Skin and 1 tab PO DAILY 02/06/22 02/06/22 Nails Chew] Zinc Sulfate 50 mg PO DAILY 02/06/22 02/06/22 amLODIPine [Norvasc] 5 mg PO DAILY 02/06/22 02/06/22 Previous Rx's Medication Instructions Recorded Metoprolol Succinate (ER) [Toprol 50 mg PO DAILY #90 tab.er.24h 07/12/20 XL] Allergies Allergy/AdvReac Type Severity Reaction Status Date / Time No Known Allergies Allergy Verified 02/06/22 12:24 Review of Systems ROS Statement: Those systems with pertinent positive or pertinent negative responses have been documented in the HPI. ROS Other: All systems not noted in ROS Statement are negative. Past Medical History Past Medical History: Atrial Fibrillation, Hyperlipidemia, Hypertension Additional Past Medical History / Comment(s): breast cancer on left side History of Any Multi-Drug Resistant Organisms: None Reported Past Surgical History: Breast Surgery Additional Past Surgical History / Comment(s): breast surgery 2011 Past Psychological History: No Psychological Hx Reported Smoking Status: Never smoker Past Alcohol Use History: Occasional Past Drug Use History: None Reported General Exam Limitations: no limitations General appearance: alert, in no apparent distress Head exam: Present: atraumatic Eye exam: Present: normal appearance. Absent: scleral icterus, conjunctival injection, periorbital swelling Neck exam: Absent: tenderness, meningismus Respiratory exam: Present: normal lung sounds bilaterally. Absent: respiratory distress, accessory muscle use Cardiovascular Exam: Present: regular rate GI/Abdominal exam: Present: soft. Absent: distended, tenderness, guarding, rebound, rigid, mass Rectal exam: Present: hemorrhoids, other (No fissures or gross blood). Absent: bloody stool, mass, tenderness Extremities exam: Present: full ROM, normal capillary refill. Absent: tenderness, pedal edema Back exam: Absent: tenderness, rash noted Neurological exam: Present: alert, oriented X3, normal gait Psychiatric exam: Present: normal affect, normal mood Skin exam: Present: warm, dry, normal color. Absent: rash, cyanosis, diaphoretic, petechiae, pallor Course Vital Signs 02/06/22 02/06/22 02/06/22 08:42 10:50 12:28 Temperature 97.8 F 97.9 F Pulse Rate 78 74 82 Respiratory 18 15 16 Rate Blood Pressure 133/71 148/82 125/65 O2 Sat by Pulse 96 98 96 Oximetry Medical Decision Making - Medical Decision Making Vital signs are stable Labs hemoglobin and hematocrit are stable. No evidence of leukocytosis. Urinalysis shows moderate leukocyte esterase with 2 white blood cells, sent for culture. Patient has no dysuria Pelvic ultrasound shows a prominent endometrial stripe. Nonvisualization of both ovaries due to overlying bowel gas. Patient was given referral to g ynecology for follow-up of postmenopausal vaginal bleeding. She will be referred to REAL ESTATE UNDERWRITER. Patient is agreeable to this plan of care. Case discussed with Dr. Trejo Was pt. sent in by a medical professional or institution? @ -No Did you speak to anyone other than the patient for history? @ -No Did you review nursing and triage notes? @ -Yes I agree Were old charts reviewed? @ -No Differential Diagnosis? @ -Postmenopausal bleeding, uterine mass, urinary tract infection and coagulopathy EKG interpreted by me (3pts min.)? @ -Not applicable X-rays interpreted by me (1pt min.)? @ -Not applicable CT interpreted by me (1pt min.)? @ -Not applicable U/S interpreted by me (1pt. min.)? @ -Yes no evidence of mass, radiologist interpretation see above What testing was considered but not performed? (CT, X-rays, U/S, labs)? Why? @ No What meds were considered but not given? Why? @ -Antibiotics were considered if urinary tract infection which was not evident Did you discuss the management of the patient with other professionals? @ -No Did you reconcile home meds? @ -No Was smoking cessation discussed for >3mins.? @ -Not applicable Was critical care preformed (if so, how long)? @ -No Were there social determinants of health that impacted care today? How? (Homelessness, low income, unemployed, alcoholism, drug addiction, transportation, low edu. Level, literacy, decrease access to med. care, care home, rehab)? @ -None Was there de-escalation of care discussed even if they declined? (Discuss DNR or withdrawal of care, Hospice)? @ -No What co-morbidities impacted this encounter? (DM, HTN, Smoking, COPD, CAD, Cancer, CVA, Hep., AIDS, mental health diagnosis, sleep apnea, morbid obesity)? @ -Atrial fibrillation, history of breast cancer 2011 Was patient admitted / discharged? @ -Discharged Undiagnosed new problem with uncertain prognosis? @ -No Drug Therapy requiring intensive monitoring for toxicity (Heparin, Nitro, Insulin, Cardizem)? @ -No Were any procedures done? @ -No Diagnosis/symptom? @ -Postmenopausal vaginal bleeding Acute, or Chronic, or Acute on Chronic? @ -Acute Uncomplicated (without systemic symptoms) or Complicated (systemic symptoms)? @ -Uncomplicated Side effects of treatment? @ -None Exacerbation, Progression, or Severe Exacerbation] @ -[no] Poses a threat to life or bodily function? @ -[no] - Lab Data Result diagrams: 02/06/22 09:48 02/06/22 09:48 Lab Results 02/06/22 02/06/22 02/06/22 Range/Units 09:48 09:48 09:48 WBC 4.9 (3.8-10.6) k/uL RBC 3.94 (3.80-5.40) m/uL Hgb 12.6 (11.4-16.0) gm/dL Hct 36.4 (34.0-46.0) % MCV 92.5 (80.0-100.0) fL MCH 31.9 (25.0-35.0) pg MCHC 34.6 (31.0-37.0) g/dL RDW 13.4 (11.5-15.5) % Plt Count 120 L (150-450) k/uL MPV 13.8 Neutrophils % (Manual) 55 % Lymphocytes % (Manual) 27 % Monocytes % (Manual) 17 % Eosinophils % (Manual) 1 % Neutrophils # (Manual) 2.70 (1.3-7.7) k/uL Lymphocytes # (Manual) 1.32 (1.0-4.8) k/uL Monocytes # (Manual) 0.83 (0-1.0) k/uL Eosinophils # (Manual) 0.05 (0-0.7) k/uL Nucleated RBCs 0 (0-0) /100 WBC Manual Slide Review Performed Large Platelets Present PT 13.2 H (9.0-12.0) sec INR 1.3 H (<1.2) Sodium (137-145) mmol/L Potassium (3.5-5.1) mmol/L Chloride (98-107) mmol/L Carbon Dioxide (22-30) mmol/L Anion Gap mmol/L BUN (7-17) mg/dL Creatinine (0.52-1.04) mg/dL Est GFR (CKD-EPI)AfAm (>60 ml/min/1.73 sqM) Est GFR (CKD-EPI)NonAf (>60 ml/min/1.73 sqM) Glucose (74-99) mg/dL Calcium (8.4-10.2) mg/dL Total Bilirubin (0.2-1.3) mg/dL AST (14-36) U/L ALT (4-34) U/L Alkaline Phosphatase (38-126) U/L Total Protein (6.3-8.2) g/dL Albumin (3.5-5.0) g/dL Urine Color Light Yellow Urine Appearance Clear (Clear) Urine pH 6.5 (5.0-8.0) Ur Specific Given 1.004 (1.001-1.035) Urine Protein Negative (Negative) Urine Glucose (UA) Negative (Negative) Urine Ketones Negative (Negative) Urine Blood Moderate H (Negative) Urine Nitrite Negative (Negative) Urine Bilirubin Negative (Negative) Urine Urobilinogen <2.0 (<2.0) mg/dL Ur Leukocyte Esterase Moderate H (Negative) Urine RBC 1 (0-5) /hpf Urine WBC 2 (0-5) /hpf Ur Squamous Epith Cells <1 (0-4) /hpf Urine Bacteria Rare H (None) /hpf Urine Mucus Rare H (None) /hpf 02/06/22 Range/Units 09:48 WBC (3.8-10.6) k/uL RBC (3.80-5.40) m/uL Hgb (11.4-16.0) gm/dL Hct (34.0-46.0) % MCV (80.0-100.0) fL MCH (25.0-35.0) pg MCHC (31.0-37.0) g/dL RDW (11.5-15.5) % Plt Count (150-450) k/uL MPV Neutrophils % (Manual) % Lymphocytes % (Manual) % Monocytes % (Manual) % Eosinophils % (Manual) % Neutrophils # (Manual) (1.3-7.7) k/uL Lymphocytes # (Manual) (1.0-4.8) k/uL Monocytes # (Manual) (0-1.0) k/uL Eosinophils # (Manual) (0-0.7) k/uL Nucleated RBCs (0-0) /100 WBC Manual Slide Review Large Platelets PT (9.0-12.0) sec INR (<1.2) Sodium 141 (137-145) mmol/L Potassium 4.2 (3.5-5.1) mmol/L Chloride 107 (98-107) mmol/L Carbon Dioxide 28 (22-30) mmol/L Anion Gap 6 mmol/L BUN 20 H (7-17) mg/dL Creatinine 1.18 H (0.52-1.04) mg/dL Est GFR (CKD-EPI)AfAm 47 (>60 ml/min/1.73 sqM) Est GFR (CKD-EPI)NonAf 41 (>60 ml/min/1.73 sqM) Glucose 109 H (74-99) mg/dL Calcium 9.2 (8.4-10.2) mg/dL Total Bilirubin 0.8 (0.2-1.3) mg/dL AST 30 (14-36) U/L ALT 20 (4-34) U/L Alkaline Phosphatase 42 (38-126) U/L Total Protein 7.3 (6.3-8.2) g/dL Albumin 4.3 (3.5-5.0) g/dL Urine Color Urine Appearance (Clear) Urine pH (5.0-8.0) Ur Specific Given (1.001-1.035) Urine Protein (Negative) Urine Glucose (UA) (Negative) Urine Ketones (Negative) Urine Blood (Negative) Urine Nitrite (Negative) Urine Bilirubin (Negative) Urine Urobilinogen (<2.0) mg/dL Ur Leukocyte Esterase (Negative) Urine RBC (0-5) /hpf Urine WBC (0-5) /hpf Ur Squamous Epith Cells (0-4) /hpf Urine Bacteria (None) /hpf Urine Mucus (None) /hpf Disposition Clinical Impression: Abnormal vaginal bleeding in postmenopausal patient Disposition: HOME SELF-CARE Condition: Good Instructions (If sedation given, give patient instructions): Abnormal (Dysfunctional) Uterine Bleeding (ED) Additional Instructions: Follow-up with front end software engineer next week. Return to the emergency room with any new or concerning symptoms including increased bleeding or pain Is patient prescribed a controlled substance at d/c from ED?: No Referrals: Shane Post DO [Primary Care Provider] - 1-2 days Alexandra Chacko DO [Doctor of Osteopathic Medicine] - 1-2 days Time of Disposition: 12:20
[2022-02-06 09:59] LABS: HCT 36.4 % (34.0-46.0); HGB 12.6 gm/dL (11.4-16.0); MCH 31.9 pg (25.0-35.0); MCHC 34.6 g/dL (31.0-37.0); MCV 92.5 fL (80.0-100.0); Mean Platelet Volume 13.8; RBC 3.94 m/uL (3.80-5.40); RDW 13.4 % (11.5-15.5); WBC 4.9 k/uL (3.8-10.6)
[2022-02-06 10:13] LABS: Albumin 4.3 g/dL (3.5-5.0); Calcium 9.2 mg/dL (8.4-10.2); Potassium 4.2 mmol/L (3.5-5.1); Total Bilirubin 0.8 mg/dL (0.2-1.3); Total Protein 7.3 g/dL (6.3-8.2)
[2022-02-06 10:15] LABS: INR 1.3 (<1.2); Prothrombin Time 13.2 sec (9.0-12.0)
--- NOTE | 2022-02-06 10:34 | US ---
EXAMINATION TYPE: US pelvic complete DATE OF EXAM: 02/06/2022 COMPARISON: NONE CLINICAL HISTORY: Vaginal bleeding. TECHNIQUE: Transabdominal (TA). Date of LMP: unknown EXAM MEASUREMENTS: Uterus: 7.7 x 3.1 x 5.9 cm Endometrial Stripe: 0.6 cm Right Ovary: unable to visualize Left Ovary: unable to visualize 1. Uterus: Anteverted calcifications noted 2. Endometrium: fluid within 3. Right Ovary: Obscured by overlying bowel gas 4. Left Ovary: Obscured by overlying bowel gas 5. Bilateral Adnexa: wnl 6. Posterior cul-de-sac: wnl Nonvisualization of both ovaries due to overlying bowel gas. Simple appearing fluid is demonstrated w ithin the endometrium. Endometrial stripe is borderline prominent for patient's age. No free fluid. IMPRESSION: 1. Borderline prominent endometrial stripe for patient's postmenopausal status. Direct visualization is recommended. 2. Simple appearing fluid within the endometrial canal which may be related to cervical stenosis. 3. Nonvisualization of both ovaries.
[2022-02-06 10:41] LABS: Eosinophils # (M) 0.05 k/uL (0-0.7); Lymphocytes # (M) 1.32 k/uL (1.0-4.8); Monocytes # (M) 0.83 k/uL (0-1.0); Neutrophils % (M) 55 %; Nucleated Red Blood Cells 0 /100 WBC (0-0); Total Cells Counted 100
[2022-02-06 10:42] LABS: Large Platelets Present
[2022-02-06 10:43] LABS: Platelet Count 120 k/uL (150-450)
[2022-02-06 12:09] LABS: Appearance,Urine Clear (Clear); Bacteria,Urine Rare /hpf; Bilirubin,Urine Negative (Negative); Blood,Urine Moderate (Negative); Color,Urine Light Yellow; Glucose,Urine (UA) Negative (Negative); Ketones,Urine Negative (Negative); Leukocyte Esterase,Urine Moderate (Negative); Mucus,Urine Rare /hpf; Nitrite,Urine Negative (Negative); PH, Urine 6.5 (5.0-8.0); Protein,Urine Negative (Negative); RBC,Urine 1 /hpf (0-5); Specific Gravity,Urine 1.004 (1.001-1.035); Squamous Epithelial Cell,Urine <1 /hpf (0-4); Urobilinogen,Urine <2.0 mg/dL (<2.0); WBC,Urine 2 /hpf (0-5)
[2022-02-06 12:29] VITALS: BP 125/65; PULSE 82; RESP 16; TEMP 97.9
== END 2022-02-06 12:31 | disposition home or self-care (01) ==
LOC: EC 08:30
DX: N95.0 Postmenopausal bleeding (principal); I48.91 Unspecified atrial fibrillation; E78.5 Hyperlipidemia, unspecified; I10 Essential (primary) hypertension; Z79.899 Other long term (current) drug therapy; Z79.01 Long term (current) use of anticoagulants
CPT/HCPCS: 36415; 76856; 80053; 81001; 85025; 85610; 99284